=== PATIENT | male | born 1995 | race Hispanic/Latino ===

== ENCOUNTER 2023-02-03 21:54 | Emergency (ER) | payer OTHER ==
[~2023-02-03] VITALS: Ht 162.6 cm; Wt 61.2 kg
[2023-02-03 23:40] VITALS: BP 112/79
== END 2023-02-03 23:28 | disposition home or self-care (01) ==
LOC: ED 21:54
DX: Z04.1 Encounter for examination and observation following transport accident (principal)
CPT/HCPCS: 99282